=== PATIENT | female | born 1975 | race Hispanic/Latino ===

== ENCOUNTER → 2020-02-24 | Outpatient (CLI) | payer BC | END | disposition home or self-care (01) | LOC: RAH 12:05 | PROVIDERS: ATTEND Physical Medicine & Rehabilitation | DX: M41.86 Other forms of scoliosis, lumbar region (principal) | CPT/HCPCS: 72074; 72110 ==

== ENCOUNTER → 2020-06-19 | Outpatient (CLI) | payer BC | END | disposition home or self-care (01) | LOC: RAH 10:59 | PROVIDERS: ATTEND Physical Medicine & Rehabilitation | DX: M54.5 Low back pain (principal) | CPT/HCPCS: 72148 ==

== ENCOUNTER → 2020-10-06 | Outpatient (CLI) | payer BC | END | disposition home or self-care (01) | LOC: RAH 07:43 | PROVIDERS: ATTEND Physical Medicine & Rehabilitation | DX: N88.8 Other specified noninflammatory disorders of cervix uteri (principal) | CPT/HCPCS: 72195 ==

== ENCOUNTER 2021-02-19 11:00 | Inpatient (IN) | payer BC ==
[~2021-02-19] VITALS: Ht 162.6 cm; Wt 63.0 kg
[2021-02-19 11:45] LABS: BASOPHILS % (AUTO) 1.3 % (0.0-5.0); HEMATOCRIT 38.3 % (36-48); LYMPHOCYTES % (AUTO) 31.4 % (21.0-51.0); MEAN CORPUSCULAR HEMOGLOBIN 32.1 pg (27.0-33.0); MEAN CORPUSCULAR HGB CONC 33.2 g/dL (32.0-36.0); MEAN CORPUSCULAR VOLUME 96.7 fL (79-99); MONOCYTES % (AUTO) 11.7 % (3.0-13.0); NEUTROPHILS % (AUTO) 49.3 % (40.0-77.0); PLATELET COUNT (AUTO) 194 K/uL (130-400); RED BLOOD CELL COUNT(AUTO) 3.96 MIL/uL (4.00-5.50); RED CELL DISTRIBUTION WIDTH 11.3 % (11.0-15.5)
[2021-02-19] MEDS ORDERED: CALDOLOR 800MG+NS 250ML 250 ML IV SCH (12:00)
[2021-02-19 12:09] LABS: EOSINOPHILS % (MANUAL) 9 % (1-6); LYMPHOCYTES % (MANUAL) 24 % (22-44); MAN.DIFF COMMENT-IMPRESSION MANUAL DIFFERENTIAL; MONOCYTES % (MANUAL) 6 % (2-9); PLATELET MORPHOLOGY COMMENT ADEQUATE; REACTIVE LYMPHOCYTES 2 % (0-0); SEGMENTED NEUTROPHILS % 59 % (40-70)
[2021-02-21] MEDS: CEFAZOLIN SODIUM 1 GM VIAL IVP SCH (12:00)
[2021-02-25 09:00] VITALS: BP 96/59
[2021-02-25] MEDS ORDERED: ROSU10TA22 PO (09:38)
[2021-02-25] MEDS ORDERED: PROBIOTIC ALIGN PO (09:38)
[2021-02-25] MEDS ORDERED: PANT40TA54 PO (09:38)
[2021-02-25] MEDS ORDERED: DICY10CA13 PO (09:38)
[2021-02-25] MEDS ORDERED: PHARMACY COMMUNICATION MISC SCH (10:00)
[2021-02-25 16:26] LABS: HEMATOCRIT 38.8 % (36-48); MEAN CORPUSCULAR HEMOGLOBIN 31.7 pg (27.0-33.0); MEAN CORPUSCULAR HGB CONC 33.8 g/dL (32.0-36.0); MEAN CORPUSCULAR VOLUME 93.9 fL (79-99); PLATELET COUNT (AUTO) 231 K/uL (130-400); RED BLOOD CELL COUNT(AUTO) 4.13 MIL/uL (4.00-5.50); RED CELL DISTRIBUTION WIDTH 10.9 % (11.0-15.5); WHITE BLOOD COUNT (AUTO) 5.3 K/uL (4.8-10.8)
[2021-02-25 16:50] LABS: BAND NEUTROPHILS % (MANUAL) 6 % (0-2); EOSINOPHILS % (MANUAL) 4 % (1-6); LYMPHOCYTES % (MANUAL) 22 % (22-44); MAN.DIFF COMMENT-IMPRESSION MANUAL DIFFERENTIAL; MONOCYTES % (MANUAL) 4 % (2-9); REACTIVE LYMPHOCYTES 7 % (0-0); SEGMENTED NEUTROPHILS % 57 % (40-70)
[2021-02-26] VITALS (20 sets, daily range): BP systolic 93–129; BP diastolic 40–96
[2021-02-26] MEDS ORDERED: LACTATED RINGERS 1000ML 1,000 ML IV ONE (07:05)
[2021-02-26] MEDS ORDERED: DEXAMETHASONE SOD PHOSPHATE 10MG/ML 1ML VIAL ONE (07:48)
[2021-02-26] MEDS ORDERED: MIDAZOLAM HCL 1 MG/ML 2ML VIAL ONE ×2 (07:49→08:27)
[2021-02-26] MEDS ORDERED: LIDOCAINE PF 100MG/5ML (2%) SYRINGE 5ML ONE (07:49)
[2021-02-26] MEDS ORDERED: GLYCOPYRROLATE 1 MG/5 ML SYRINGE ONE (07:49)
[2021-02-26] MEDS ORDERED: NEOSTIGMINE 5MG/5ML SYR IV ONE (07:49)
[2021-02-26] MEDS ORDERED: ONDANSETRON 4MG INJ ONE (07:49)
[2021-02-26] MEDS ORDERED: FENTANYL CITRATE PF 50 MCG/1 ML 2ML VIAL ONE (07:49)
[2021-02-26] MEDS ORDERED: SUCCINYLCHOLINE CHLORIDE 20 MG/ML 10 ML VIAL ONE (07:49)
[2021-02-26] MEDS ORDERED: ROCURONIUM 10MG/1ML SYR 10 MG/ML ML ONE (07:49)
[2021-02-26] MEDS ORDERED: PROPOFOL 10 MG/ML 20ML VIAL IV ONE (07:49)
[2021-02-26] MEDS ORDERED: MEPERIDINE-PF 25 MG/ML SYG ONE ×2 (07:51→10:40)
[2021-02-26] MEDS ORDERED: MORPHINE PF 100MG/10ML AMP IV ONE (08:24)
[2021-02-26] MEDS ORDERED: ACETAMINOPHEN WITH CODEINE 1 TAB TAB PO PRN ×2 (08:30)
[2021-02-26] MEDS ORDERED: MEPERIDINE-PF 75 MG/ML SYG IM PRN ×2 (08:30→14:00)
[2021-02-26] MEDS ORDERED: ONDANSETRON 4MG INJ IVP PRN (08:30)
[2021-02-26] MEDS ORDERED: HYDROCODONE/ACETAMINOPHEN 5/325 MG TAB PO PRN (08:30)
[2021-02-26] MEDS ORDERED: DOCUSATE SODIUM 100 MG CAP PO PRN (08:30)
[2021-02-26] MEDS: IBUPROFEN 800 MG TAB PO SCH ×3 (08:30→23:30)
[2021-02-26] MEDS ORDERED: BISACODYL 10 MG SUPP.RECT RC PRN (08:30)
[2021-02-26] MEDS ORDERED: PROMETHAZINE HCL 25 MG/ML 1ML AMPULE IM PRN ×3 (08:30→14:00)
[2021-02-26] MEDS ORDERED: SCOPOLAMINE HYDROBROMIDE 1 EACH ADH..PATCH TD ONE (08:30)
[2021-02-26] MEDS ORDERED: EPHEDRINE SULFATE 50 MG/ML AMPULE ONE (08:40)
[2021-02-26] MEDS: CEFAZOLIN SODIUM 1 GM VIAL IVP SCH (08:51)
[2021-02-26] MEDS: DEXTROSE 5 %-0.45 % NACL 1,000 ML IV PRN ×2 (12:29→23:31)
[2021-02-26] MEDS: CALDOLOR 800MG+NS 250ML 250 ML IVPB SCH (17:18)
[2021-02-27] MEDS: CALDOLOR 800MG+NS 250ML 250 ML IVPB SCH (00:30)
[2021-02-27 03:12] VITALS: BP 91/55
[2021-02-27 08:00] VITALS: BP 90/52
[2021-02-27] MEDS: SIMETHICONE 80 MG TAB.CHEW PO PRN ×2 (08:30→14:57)
[2021-02-27] MEDS: IBUPROFEN 800 MG TAB PO SCH ×2 (08:31→14:57)
[2021-02-27 11:20] VITALS: BP 103/59
[2021-02-27 16:40] VITALS: BP 106/60
== END 2021-02-27 18:00 | disposition home or self-care (01) | DRG 743 ==
LOC: DAHIP 02-26 06:45 → WSH 02-26 11:20
PROVIDERS: ADMIT Obstetrics & Gynecology; ATTEND Obstetrics & Gynecology
PROC: 0UB60ZZ Excision of Left Fallopian Tube, Open Approach (ICD-10-PCS; 2021-02-26)
PROC: 0UT90ZZ Resection of Uterus, Open Approach (ICD-10-PCS; principal; 2021-02-26 08:20)
PROC: 0UB10ZZ Excision of Left Ovary, Open Approach (ICD-10-PCS; 2021-02-26 08:20)
DX: N95.0 Postmenopausal bleeding (principal); N73.6 Female pelvic peritoneal adhesions (postinfective); N85.4 Malposition of uterus; Z20.822 Contact with and (suspected) exposure to COVID-19; N94.89 Other specified conditions associated with female genital organs and menstrual cycle
CPT/HCPCS: 36415; 85025; 86850; 86900; 86901; 87635; A4344; G0378; J0330; J0690; J1100; J1741; J2001; J2175; J2250; J2274; J2405; J2550; J2704; J2710; J3010; J3490; J7030; J7120